=== PATIENT | male | born 1955 | race Two or more races ===

== ENCOUNTER 2018-06-20 11:16 | Outpatient (CLI) | payer OTHER | END 2018-06-20 14:07 | disposition home or self-care (01) | LOC: NUCLEAR 11:16 | DX: E04.1 Nontoxic single thyroid nodule (principal) | CPT/HCPCS: 78013; A9512 ==

== ENCOUNTER → 2018-07-16 | Outpatient (CLI) | payer OTHER | END | disposition home or self-care (01) | LOC: SONOGRAMA 10:54 | DX: E04.1 Nontoxic single thyroid nodule (principal) ==

== ENCOUNTER 2020-08-20 09:54 | Outpatient (CLI) | payer OTHER | END 2020-08-20 10:00 | disposition home or self-care (01) | LOC: SONOGRAMA 09:54 | DX: D34 Benign neoplasm of thyroid gland (principal); E06.5 Other chronic thyroiditis; E04.8 Other specified nontoxic goiter ==